=== PATIENT | male | born 1965 | race Caucasian/White ===

== ENCOUNTER 2017-01-13 13:45 | Inpatient (IN) | payer OTHER ==
[~2017-01-13] VITALS: Ht 182.9 cm; Wt 102.5 kg
[2017-01-13] MEDS ORDERED: LISINOPRIL HCTZ1 TAB PO (14:53)
[2017-01-13] MEDS ORDERED: METOPROLOL SUC100 M1 PO (14:53)
[2017-01-13] MEDS ORDERED: AMLODIPINE10 MG PO (14:54)
[2017-01-13] MEDS ORDERED: FLEXERIL10 MG PO (14:55)
[2017-01-13 14:57] VITALS: BP 160/82
--- NOTE | 2017-01-13 15:11 | RADIOLOGY REPORT PS360 ---
CHEST(2 VIEWS-NOT PORTABLE) HISTORY: Cough and congestion R/O PNEUMONIA ORDERING PHYSICIAN: Melquiades Ham MD PATIENT AGE: 51 years COMPARISON: 10/08/2011 FINDINGS: There are low lung volumes with atelectatic changes in the lung bases. There is increased density in the right lower lobe consistent with infiltrate with small effusion. Upper lobes are clear. Unremarkable cardiovascular structures. No acute bony anomalies. IMPRESSION: Right lower lobe infiltrate with effusion with bibasilar atelectasis.
[2017-01-13] MEDS ORDERED: FISH OIL1000 MG PO (15:59)
[2017-01-13] MEDS ORDERED: COQ1050 MG PO (15:59)
[2017-01-13 16:01] VITALS: BP 160/82
[2017-01-13 16:13] LABS: LYMPH # 0.7 K/mm3 (0.7-4.5); LYMPH % 3.9 % (10-50)
[2017-01-13] MEDS ORDERED: HCTZ/LISINOPRIL1 TA3 PO (16:15)
[2017-01-13] MEDS ORDERED: LORADAMED10 MG PO (16:20)
--- NOTE | 2017-01-13 16:20 | PHARMACY CLINIC NOTE ---
Patient Demographics Patient Demographics Admission date: 01/13/17 Date: 01/13/17 Time: 1619 Allergies Coded Allergies: No Known Allergies (01/13/17) HEIGHT- FT: 6 IN: 0.00 K.712 VTE General Information Disclaimer The following section includes nursing documentation that has been pulled in for pharmacy review. VTE prophylaxis [id number] VTE prophylaxis ordered? Yes Type of prophylaxis/treatment: Lovenox at 3033
[2017-01-13] MEDS ORDERED: MELOXICAM15 MG PO (16:21)
[2017-01-13] MEDS ORDERED: MAG-OX 400MG T400 MG PO (16:21)
[2017-01-13 16:28] LABS: HEMOGLOBIN 13.4 g/dL (14.1-18.0)
--- NOTE | 2017-01-13 16:31 | HISTORY AND PHYSICAL REPORT ---
History and Physical ([facility]) Date of admission: 01/13/17 Chief complaint: vomiting, cough and fever History: History of Present Illness: Mr Celis is a 51 year old male with a history of HTN and Hyperlipidemia who presented to the office of [facility] today with fever, cough and vomiting. He states that he has been coughing for about 2weeks and then 01/10/17 felt much worse and started to vomit. His cough has been productive of yellowish sputum and he has had a fever. He has retained very little fluids. He continues to void but urine is dark. He has had no diarrhea. He has right upper chest pain with deep breathing, coughing and vomiting. At time of this exam he does not feel much better. The Zofran has helped the nausea. Past Medical History: Medical History: CAD? No Angina: No MA: No Hypertension? Yes Hyperlipidemia? Yes CHF? No DVT? No PE? No COPD? No Asthma? No Anemia? No GERD? No Gastric ulcers? No GI Bleed? No Hernia? No Thyroid Problems? No CVA? No Seizures? No Diabetes? No Renal Insuffiency? No UTI? No Stones? No BPH? No GB Disease: No Arthritis? No Migraines? No Cataracts? No Glaucoma? No Anxiety? No Depression? No Surgical history: Previous Surgery?Y L KNEE Medications: Reported Medications Cyclobenzaprine Hcl (Flexeril) 5 MG PO BIDP PRN muscle relaxer LISINOPRIL/HYDROCHLOROTHIAZIDE (Lisinopril-Hctz 20-12.5 MG Tab) 2 TAB PO Loratadine (Loradamed) 10 MG PO DAILY Meloxicam (Meloxicam 15MG) 15 MG PO DAILY MAGNESIUM OXIDE (Magnesium Oxide) 400 MG PO METOPROLOL SUCCINATE XL (Metoprolol Succinate) 100 MG PO DAILY Amlodipine Besylate (Amlodipine) 10 MG PO DAILY Ubidecarenone (Coq10) 50 MG PO DAILY OMEGA-3 FATTY ACIDS/FISH OIL (Fish Oil 1,000 MG Capsule) 1,000 MG PO DAILY MISCELLANEOUS (UNKNOWN MEDICATION) 1 DERRICK TP DAILY Discontinued Reported Medications LISINOPRIL/HYDROCHLOROTHIAZIDE (Lisinopril-Hctz 20-25 MG Tab) 1 TAB PO DAILY Allergies: Coded Allergies: No Known Allergies (01/13/17) Family History: Family history: Postive for: CAD, HTN. Social History: Smoking Hx Tobacco: No Smoker: Never Smoker Type: N/A Packs/day: N/A Are you exposed to second hand Yes Alcohol: Alcohol: No Hx of Drug Use: Drug Use? No Review of Systems: Constitutional Positive for: weak. ENT No: ear ache, nasal congestion, sore throat. Cardiovascular No: chest pain, edema, palpitations. Respiratory Positive for: shortness of air, pneumonia, productive cough (sputum). No: hemoptysis. GI Positive for: abdominal pain, nausea, vomitting. No: constipation, diarrhea, hematemeis, hematochezia, melena. (male) No: frequency, hematuria. Neurological Positive for: dizziness, weakness. No: seizure, syncope. Musculoskeletal No: extremity pain, joint pain, myalgias. Physical Exam: Vital signs: 1ST Vital Signs Result Date Time Pulse Ox 92 01/13 1457 B/P 160/82 01/13 1457 O2 Delivery ROOM AIR 01/13 1457 Temp 99.6 01/13 1457 Pulse 106 01/13 1457 Resp 22 01/13 1457 Exam: General appearance: alert, no acute distress, well-developed, well-nourished, appears not to feel well Eyes: anicteric, pupils reactive to light ENT: mucous membranes moist Neck: no carotid bruit, lymphadenopathy (absent), thyroid (normal) Cardiovascular: regular rate & rhythm, tachycardia Respiratory: bilateral crackles > in the right base ABD: non-distended, soft, bowel sounds present, tenderness (RUQ) Extremities: moves all, no peripheral edema, pedal pulses (present), no calf tenderness Lab data: Labs: Laboratory Tests 01/13/17 1530: Sodium 137, Potassium 3.1 L, Chloride 100, Carbon Dioxide 28, BUN 24 H, Creatinine 1.6 H, Estimated Creat Clear 78, Estimated GFR (MDRD) 46, Glucose 116 H, Calcium 9.4, WBC 17.9 H, RBC 4.48 L, Hgb 13.4 L, Hct 40.0 L, MCV 89.4, RDW 13.7, Plt Count 293, MPV 7.3 L, Gran % 87.5 H, Gran # 15.6 H, Lymphocytes % 3.9 L, Monocytes % 7.9, Eosinophils % 0.6, Basophils % 0.2, Lymphocytes # 0.7, Monocytes # 1.4 H, Eosinophils # 0.1, Basophils # 0.0, PUBS MCHC 33.5, MCH 30.0 Microbiology 01/13 1530 BLOOD: Anaerobic Blood Culture - RECD 01/13 1530 BLOOD: Aerobic Blood Culture - RECD 01/13 1530 BLOOD: Anaerobic Blood Culture - RECD 01/13 1530 BLOOD: Aerobic Blood Culture - RECD Laboratory Tests Radiology results: Results: 01/13/17 CXR IMPRESSION: Right lower lobe infiltrate with effusion with bibasilar atelectasis. Diagnosis(es): 1. Right lower lobe pneumonia 2. HTN (hypertension) 3. Hyperlipidemia 4. Hypovolemia dehydration 5. Hypokalemia Plan: ABX, duonebs,IVF, KCL and nausea management (Sho Valdez APRN) Diagnosis(es): 1. Right lower lobe pneumonia Status: Acute 2. Vomiting Status: Acute 3. Hypovolemia dehydration Status: Acute 4. Hypokalemia Status: Acute 5. HTN (hypertension) Status: Chronic 6. Hyperlipidemia Status: Chronic Plan: Patient seen and agree with above note, admitted with CAP standing orders. (Melquiades Ham MD) at 1631 at 1639
[2017-01-13 16:58] LABS: NEUTROPHILS 91 % (42-76)
[2017-01-13 19:44] VITALS: BP 129/84
[2017-01-13 20:04] VITALS: BP 129/84
[2017-01-14] VITALS (8 sets, daily range): BP systolic 151–179; BP diastolic 74–93
[2017-01-14 06:27] LABS: LYMPH # 1.1 K/mm3 (0.7-4.5); LYMPH % 7.7 % (10-50)
[2017-01-14 06:41] LABS: HEMOGLOBIN 11.5 g/dL (14.1-18.0)
--- NOTE | 2017-01-14 08:16 | ACUTE CARE PROGRESS NOTE (QUA) ---
Progress Notes Subjective Date 01/14/17 Time 0812 Note Feeling somewhat better; slept little; no further vomitin; no diarrhea; cough is less. ate a little of breakfast Objective Findings Laboratory Tests 01/14/17 0615: Sodium 137, Potassium 3.7, Chloride 104, Carbon Dioxide 28, BUN 17, Creatinine 1.3, Estimated Creat Clear 97, Estimated GFR (MDRD) 58, Glucose 119 H, Calcium 8.4 L, WBC 14.3 H, RBC 3.75 L, Hgb 11.5 L, Hct 33.5 L, MCV 89.5, RDW 13.8, Plt Count 235, MPV 7.6, Gran % 82.0 H, Gran # 11.7 H, Lymphocytes % 7.7 L, Monocytes % 6.8, Eosinophils % 3.4, Basophils % 0.1, Lymphocytes # 1.1, Monocytes # 1.0, Eosinophils # 0.5 H, Basophils # 0.0, PUBS MCHC 33.9, MCH 30.3 01/13/17 1530: Sodium 137, Potassium 3.1 L, Chloride 100, Carbon Dioxide 28, BUN 24 H, Creatinine 1.6 H, Estimated Creat Clear 78, Estimated GFR (MDRD) 46, Glucose 116 H, Calcium 9.4, WBC 17.9 H, RBC 4.48 L, Hgb 13.4 L, Hct 40.0 L, MCV 89.4, RDW 13.7, Plt Count 293, MPV 7.3 L, Gran % 87.5 H, Gran # 15.6 H, Total Counted 100, Lymphocytes % 3.9 L, Monocytes % 7.9, Eosinophils % 0.6, Basophils % 0.2, Neutrophils 91 H, Lymphocytes (Manual) 3 L, Lymphocytes # 0.7, Monocytes (Manual) 6, Monocytes # 1.4 H, Eosinophils # 0.1, Basophils # 0.0, Platelet Estimate NORMAL, PUBS MCHC 33.5, MCH 30.0, Mycoplasma pneumon IgM NON- REACTIVE Microbiology 01/14 2120 SPUTUM: Sputum Culture - RES 01/14 2120 SPUTUM: Gram Stain - RES 01/14 2120 SPUTUM: Organism ID (Sequencing 2)(ABHI) - ORD 01/13 1530 BLOOD: Anaerobic Blood Culture - RECD 01/13 1530 BLOOD: Aerobic Blood Culture - RECD 09/18 1530 BLOOD: Anaerobic Blood Culture - RECD 01/13 1530 BLOOD: Aerobic Blood Culture - RECD Vital Signs Date Time Temp Pulse Resp B/P Pulse O2 O2 Flow FiO2 Ox Delivery Rate 01/14 0611 2 01/14 0611 91 OXYGEN 2 01/14 0422 98.8 95 18 177/82 92 OXYGEN 2 01/14 0047 99.2 100 18 179/86 93 OXYGEN 2 01/13 2311 2 01/13 2035 2 01/13 203 89 ROOM AIR 01/14 2004 98.8 94 18 129/84 93 OXYGEN 01/13 194 98.8 94 18 129/84 89 2 01/13 1624 2 01/13 1624 2 01/13 1624 87 ROOM AIR 2 01/13 1624 87 ROOM AIR 01/13 1601 106 01/13 1601 99.6 106 22 160/82 01/13 1601 92 ROOM AIR 01/13 1457 99.6 106 22 160/82 92 ROOM AIR Current Medications Enoxaparin Sodium 40 MG DAILY SC Acetaminophen 0 .STK-MED ONE PO (DC) Albuterol/Ipratropium 3 ML Q6H6 INH Potassium Chloride/Dextrose/Sod Cl 1,000 ML .Q8H IV Sodium Chloride 1,000 ML .Q1H1M IV (DC) Acetaminophen 0 .STK-MED ONE PO (DC) Ondansetron HCl 0 .STK-MED ONE .ROUTE (DC) Sodium Chloride 1,000 ML .STK-MED ONE IV (DC) Azithromycin 500 MG Q24H IV Sodium Chloride 250 ML Sodium Chloride 10 ML PRN PRN IV Acetaminophen 650 MG Q4HP PRN PO Albuterol/Ipratropium 3 ML Q1HP PRN INH Ceftriaxone Sodium 1 GM Q24H IV Sodium Chloride 50 ML Guaifenesin/Dextromethorphan 10 ML Q4HP PRN PO Nicotine 21 MG DAILYP PRN TD Ondansetron HCl 8 MG Q8HP PRN IV Sodium Chloride 1,000 ML .Q1H1M IV (DC) 01/13 1500 01/13 2300 01/14 0700 Intake Total Output Total Balance Patient 226 lb Weight Last VS-Temp:98.8 B/P:177/82 Pulse:95 Resp:18 SaO2:91 OXYGEN Last weight lbs:226 oz:7 K.712 Method:Bed Scales Exam General appearance: alert, no acute distress, well-developed, well-nourished Cardiovascular: regular rate & rhythm, murmur Respiratory: bilateral basilar crackles > on the left ABD: non-distended, soft, no tenderness Extremities: moves all, no peripheral edema, no calf tenderness Neuro: alert, oriented, speech clear Assessment/Plan Problem List 1. Right lower lobe pneumonia Status: Acute 2. Vomiting Status: Acute 3. Hypovolemia dehydration Status: Acute 4. Hypokalemia Status: Acute 5. HTN (hypertension) Status: Chronic 6. Hyperlipidemia Status: Chronic Patient condition Improving Plan: continue current care This inpt stay is expected to cross 2 MNs from start of care Yes (Sho Valdez APRN) Assessment/Plan Problem List 1. Right lower lobe pneumonia Status: Acute 2. Vomiting Status: Acute 3. Hypovolemia dehydration Status: Acute 4. Hypokalemia Status: Acute 5. HTN (hypertension) Status: Chronic 6. Hyperlipidemia Status: Chronic Comments: Patient seen and agree with above note, improving, resume some BP meds today. (Melquiades Ham MD) at 0816 at 0868
[2017-01-15] VITALS (9 sets, daily range): BP systolic 152–194; BP diastolic 87–118
--- NOTE | 2017-01-15 08:39 | ACUTE CARE PROGRESS NOTE (QUA) ---
Progress Notes Subjective Date 01/15/17 Time 0837 Note Patient had more cough overnight, doesn't feel as well as yesterday. Objective Findings Vital Signs Date Time Temp Pulse Resp B/P Pulse O2 O2 Flow FiO2 Ox Delivery Rate 01/15 0732 2 01/15 0732 99.4 105 20 152/89 94 OXYGEN 2 01/15 0643 2 01/15 0550 2 01/15 0522 2 01/15 0449 2 01/15 0449 95 OXYGEN 2 01/15 0428 2 01/15 0428 98.7 93 20 174/101 94 OXYGEN 2 01/15 0354 91 ROOM AIR 01/15 0254 2 01/15 0205 2 01/15 0100 2 01/15 0015 2 01/15 0015 98.5 100 16 173/95 95 OXYGEN 2 01/14 2313 2 01/14 2154 2 01/14 2144 2 01/14 1955 2 01/14 195 98.7 104 18 151/93 93 OXYGEN 2 01/14 1910 2 01/14 1910 98.7 104 18 151/93 93 2 01/14 1837 2 01/14 1835 2 01/14 1807 20 01/14 1702 2 01/14 1630 99.8 98 24 159/74 95 OXYGEN 01/14 1525 2 01/14 1326 2 01/14 1144 99.0 95 22 169/91 95 OXYGEN 01/14 1120 2 01/14 0917 2 I&O Past 24 Hrs-ending at 0700 01/15 0700 Intake Total 7052 Output Total Balance 7052 Last VS-Temp:99.4 B/P:152/89 Pulse:105 Resp:20 SaO2:94 OXYGEN Last weight lbs:227 oz:4 K.079 Method:Bed Scales Exam General appearance: alert, awake, no acute distress Cardiovascular: regular rate & rhythm Respiratory: good air movement, crackles (right side) Extremities: no peripheral edema Assessment/Plan Problem List 1. Right lower lobe pneumonia Status: Acute 2. Vomiting Status: Acute 3. Hypovolemia dehydration Status: Acute 4. Hypokalemia Status: Acute 5. HTN (hypertension) Status: Chronic 6. Hyperlipidemia Status: Chronic This inpt stay is expected to cross 2 MNs from start of care Yes Comments: Will add medication for cough, repeat CXR today, continue inpatient care. at 0838
--- NOTE | 2017-01-15 11:45 | RADIOLOGY REPORT PS360 ---
CHEST(2 VIEWS-NOT PORTABLE) HISTORY: pneumonia ORDERING PHYSICIAN: Melquiades Ham MD PATIENT AGE: 51 years COMPARISON: 01/13/2017 FINDINGS: Increasing consolidation is present in the right middle and right lower lobe with increasing right-sided effusion. . Normal heart size. No acute bony anomalies. IMPRESSION: Worsening right-sided pneumonia with increasing size right pleural effusion
--- NOTE | 2017-01-15 18:04 | ACUTE CARE PROGRESS NOTE (QUA) ---
Progress Notes Subjective Date 01/15/17 Time 1802 Note Patient had fever this afternoon, CXR shows a worsening pneumonia, so sputum culture available now. Assessment/Plan Problem List 1. Right lower lobe pneumonia Status: Acute 2. Vomiting Status: Acute 3. Hypovolemia dehydration Status: Acute 4. Hypokalemia Status: Acute 5. HTN (hypertension) Status: Chronic 6. Hyperlipidemia Status: Chronic This inpt stay is expected to cross 2 MNs from start of care Yes Comments: Stop Zithromax and Rocephin and start Levaquin and Invanz tonight. at 1803
[2017-01-16 04:03] VITALS: BP 174/97
[2017-01-16 06:56] LABS: HEMOGLOBIN 11.6 g/dL (14.1-18.0); LYMPH # 1.1 K/mm3 (0.7-4.5); LYMPH % 9.8 % (10-50)
[2017-01-16 07:21] VITALS: BP 159/92
--- NOTE | 2017-01-16 09:06 | ACUTE CARE PROGRESS NOTE (QUA) ---
Progress Notes Subjective Date 01/16/17 Time 0740 Note Pt resting in bed, states he is weak and "still not feeling good." He denies any pain. He denies nausea or vomiting although he has little appetite. He continues with productive cough, denies SOB with O2 per NC in place. Objective Findings Laboratory Tests 01/16/17 0630: Sodium 134 L, Potassium 3.9, Chloride 100, Carbon Dioxide 24, BUN 14, Creatinine 1.2, Estimated Creat Clear 105, Estimated GFR (MDRD) 64, Glucose 117 H, Calcium 8.8, WBC 11.4 H, RBC 3.91 L, Hgb 11.6 L, Hct 35.6 L, MCV 91.1, RDW 14.1, Plt Count 322, MPV 7.8, Gran % 77.5, Gran # 8.8 H, Lymphocytes % 9.8 L, Monocytes % 8.2, Eosinophils % 4.1, Basophils % 0.3, Lymphocytes # 1.1, Monocytes # 0.9, Eosinophils # 0.5 H, Basophils # 0.0, PUBS MCHC 32.7, MCH 29.8 Microbiology 01/16 0000 SPUTUM: Sputum Culture - RES 01/16 0000 SPUTUM: Gram Stain - RES Vital Signs Date Time Temp Pulse Resp B/P Pulse O2 O2 Flow FiO2 Ox Delivery Rate 01/16 0721 2 01/16 0721 99.0 104 20 159/92 94 OXYGEN 2 01/16 0650 2 01/16 0619 2 01/16 0619 92 2 01/16 0537 2 01/16 0403 98.7 94 20 174/97 93 OXYGEN 01/16 0325 2 01/16 0046 2 01/15 2352 98.0 92 20 172/95 92 OXYGEN 01/15 2330 2 01/15 2323 2 01/15 2100 2 01/15 1929 98.5 110 20 153/99 93 2 01/15 1929 98.5 110 20 153/99 93 OXYGEN 01/15 1850 2 01/15 1754 2 01/15 1754 86 ROOM AIR 01/15 1724 2 01/15 1718 100.9 123 24 153/92 92 OXYGEN 2 01/15 1717 2 01/15 1606 101.2 124 24 194/118 94 OXYGEN 2 01/15 1433 2 01/15 1329 2 01/15 1247 2 01/15 1132 2 01/15 1132 99.1 105 22 170/87 94 OXYGEN 2 01/15 1041 2 01/15 0920 2 01/15 0908 2 01/15 0908 99.4 105 20 152/89 94 2 Last VS-Temp:99.0 B/P:159/92 Pulse:104 Resp:20 SaO2:94 OXYGEN Last weight lbs:227 oz:4 K.079 Method:Bed Scales 01/15/17 CXR: 1. Worsening right-sided pneumonia with increasing size right pleural effusion. Exam General appearance: alert, awake, no acute distress Cardiovascular: regular rate & rhythm, normal peripheral pulses Respiratory: diminished throughout with right basilar crackles ABD: non-distended, no rebound, soft, no tenderness, no guarding, no organomegaly, no palpable mass, bowel sounds present Extremities: moves all, no peripheral edema, warm, no calf tenderness Neuro: alert, oriented, speech clear, no focal deficit Reviewed: medications, vital signs, lab results, radiology report, nursing notes Assessment/Plan Problem List 1. Right lower lobe pneumonia Status: Acute 2. Vomiting Status: Acute 3. Hypovolemia dehydration Status: Acute 4. Hypokalemia Status: Acute 5. HTN (hypertension) Status: Chronic 6. Hyperlipidemia Status: Chronic Patient condition Guarded Plan: Continue current care. Further per Dr. Ham. This inpt stay is expected to cross 2 MNs from start of care Yes (HUSSEIN COLLADO APRN) Assessment/Plan Problem List 1. Right lower lobe pneumonia Status: Acute 2. Vomiting Status: Acute 3. Hypovolemia dehydration Status: Acute 4. Hypokalemia Status: Acute 5. HTN (hypertension) Status: Chronic 6. Hyperlipidemia Status: Chronic Patient condition Improving Comments: Saw patient this morning, he actually feels a little better today, continue current treatment. (Melquiades Ham MD) at 0905 at 0836
[2017-01-16 11:00] VITALS: BP 155/91
[2017-01-16 11:29] VITALS: BP 155/91
[2017-01-16 19:53] VITALS: BP 162/95
[2017-01-17] VITALS (7 sets, daily range): BP systolic 166–185; BP diastolic 89–104
--- NOTE | 2017-01-17 09:03 | ACUTE CARE PROGRESS NOTE (QUA) ---
Progress Notes Subjective Date 01/17/17 Time 0725 Note Pt resting quietly in bed, reports he is feeling somewhat better this morning. He denies any pain or discomfort, states he rested well overnight, still feeling weak and tired. He has a little appetite this morning, however, he has not yet eaten breakfast. Objective Findings Vital Signs Date Time Temp Pulse Resp B/P Pulse O2 O2 Flow FiO2 Ox Delivery Rate 01/17 0800 2 01/17 0800 98.6 106 20 185/89 92 OXYGEN 2 01/17 0627 2 01/17 0627 94 OXYGEN 2 01/17 0626 2 01/17 0620 2 01/17 0505 2 01/17 0430 2 01/17 0430 98.5 95 18 166/102 93 OXYGEN 2 01/17 0303 2 01/17 0215 2 01/17 0132 2 01/17 0021 2 01/17 0021 98.1 91 20 174/104 95 OXYGEN 2 01/16 2330 2 01/16 2212 2 01/16 2153 86 ROOM AIR 01/163 2 01/16 1953 2 01/16 195 99.7 116 20 162/95 94 2 01/16 195 99.7 116 20 162/95 94 OXYGEN 2 01/16 1844 2 01/16 1748 2 01/16 1734 2 01/16 1734 92 OXYGEN 2 01/16 1632 2 01/16 1540 2 01/16 1540 98.9 111 22 95 OXYGEN 2 01/16 1500 2 01/16 1347 2 01/16 1300 2 01/16 1129 2 01/16 1129 100.0 95 22 155/91 99 OXYGEN 2 01/16 1107 2 01/16 1100 98.9 111 22 155/91 92 2 01/16 0935 2 Last VS-Temp:98.6 B/P:185/89 Pulse:106 Resp:20 SaO2:92 OXYGEN Last weight lbs:226 oz:8 K.739 Method:Bed Scales Exam General appearance: alert, awake, no acute distress Cardiovascular: regular rate & rhythm, normal peripheral pulses Respiratory: diminished throughout ABD: non-distended, no rebound, soft, no tenderness, no guarding, no organomegaly, no palpable mass, bowel sounds present Extremities: moves all, no peripheral edema, warm, no calf tenderness Neuro: alert, oriented, speech clear, no focal deficit Reviewed: medications, vital signs, lab results, radiology report, nursing notes Assessment/Plan Problem List 1. Right lower lobe pneumonia Status: Acute 2. Vomiting Status: Acute 3. Hypovolemia dehydration Status: Acute 4. Hypokalemia Status: Acute 5. HTN (hypertension) Status: Chronic 6. Hyperlipidemia Status: Chronic Patient condition Improving Plan: Continue current care. Further per Dr. Ham. This inpt stay is expected to cross 2 MNs from start of care Yes at 0902
--- NOTE | 2017-01-17 15:27 | RADIOLOGY REPORT PS360 ---
CHEST(2 VIEWS-NOT PORTABLE) HISTORY: pneumonia ORDERING PHYSICIAN: Melquiades Ham MD PATIENT AGE: 51 years COMPARISON: 01/15/2017 FINDINGS: Normal heart size. There is been no significant change in the moderate-sized right pleural effusion with consolidation of the right lower lobe and right middle lobe consistent with pneumonia with parapneumonic effusion. The left lung remains clear. No acute bony anomalies. IMPRESSION: No change right-sided pneumonia with parapneumonic effusion
[2017-01-18] VITALS (7 sets, daily range): BP systolic 153–175; BP diastolic 88–95
[2017-01-18 07:02] LABS: HEMOGLOBIN 10.9 g/dL (14.1-18.0)
--- NOTE | 2017-01-18 08:09 | ACUTE CARE PROGRESS NOTE (QUA) ---
Progress Notes Subjective Date 01/18/17 Time 0808 Note Rested a little better last night. Still with dry cough. No fever since yesterday afternoon Objective Findings Laboratory Tests 01/18/17 0535: Sodium 134 L, Potassium 4.2, Chloride 101, Carbon Dioxide 26, BUN 18, Creatinine 1.3, Estimated Creat Clear 97, Estimated GFR (MDRD) 58, Glucose 116 H, Calcium 8.2 L, WBC 12.6 H, RBC 3.66 L, Hgb 10.9 L, Hct 33.5 L, MCV 91.6, RDW 14.0, Plt Count 380, MPV 7.4, Gran % 79.4, Gran # 10.0 H, Lymphocytes % 8.0 L, Monocytes % 7.6, Eosinophils % 4.5, Basophils % 0.5, Lymphocytes # 1.0, Monocytes # 1.0, Eosinophils # 0.6 H, Basophils # 0.1, PUBS MCHC 32.5, MCH 29.7 Last VS-Temp:99.7 B/P:166/95 Pulse:95 Resp:20 SaO2:96 OXYGEN Last weight lbs:227 oz:6 K.136 Method:Bed Scales Exam General appearance: alert, no acute distress Cardiovascular: regular rate & rhythm Respiratory: diminshed in right base. No wheezes Assessment/Plan Problem List 1. Right lower lobe pneumonia Status: Acute 2. Vomiting Status: Acute 3. Hypovolemia dehydration Status: Acute 4. Hypokalemia Status: Acute 5. HTN (hypertension) Status: Chronic 6. Hyperlipidemia Status: Chronic Plan: Continue per orders. Encouraged OOB This inpt stay is expected to cross 2 MNs from start of care Yes at 1158
[2017-01-19 00:19] VITALS: BP 148/89
[2017-01-19 04:19] VITALS: BP 157/91
[2017-01-19 07:40] VITALS: BP 122/90
--- NOTE | 2017-01-19 08:26 | ACUTE CARE PROGRESS NOTE (QUA) ---
Progress Notes Subjective Date 01/19/17 Time 0822 Note Slept fairly well. He feels he is coughing less but and it is more productive. C/o hands "tingling" this AM and wonders if it is the antibiotic. No itching or rash. Objective Findings Last VS-Temp:98.6 B/P: 122/90 Pulse:107 Resp:20 SaO2:94 OXYGEN Last weight lbs: 226 oz: 2 K.569 Method: Bed Scales Exam General appearance: sitting up in chair, NAD Eyes: anicteric Cardiovascular: regular rate & rhythm Respiratory: diminshed in right base, no wheezes ABD: soft, no tenderness Extremities: no edema of hands. Skin: no rash Assessment/Plan Problem List 1. Right lower lobe pneumonia Status: Acute 2. Vomiting Status: Acute 3. Hypovolemia dehydration Status: Acute 4. Hypokalemia Status: Acute 5. HTN (hypertension) Status: Chronic 6. Hyperlipidemia Status: Chronic Plan: Conitnue per orders. F/u labs in AM. This inpt stay is expected to cross 2 MNs from start of care Yes at 0846
--- NOTE | 2017-01-19 13:04 | ACUTE CARE PROGRESS NOTE (QUA) ---
Progress Notes Subjective Date 01/19/17 Time 1304 Assessment/Plan Problem List 1. Right lower lobe pneumonia Status: Acute 2. Vomiting Status: Acute 3. Hypovolemia dehydration Status: Acute 4. Hypokalemia Status: Acute 5. HTN (hypertension) Status: Chronic 6. Hyperlipidemia Status: Chronic This inpt stay is expected to cross 2 MNs from start of care Yes Antibiotic Stewardship (2) Current Culture Results Microbiology 01/16 0000 SPUTUM: Sputum Culture - RES 01/16 0000 SPUTUM: Gram Stain - RES 01/14 2120 SPUTUM: Organism ID (Sequencing 2)(ABHI) - CAN Cancelled: Auto-cancelled after 3 days. 01/13 1530 BLOOD: Anaerobic Blood Culture - COMP 01/13 1530 BLOOD: Aerobic Blood Culture - COMP Infxn that will respond? Yes Right drug,dose,and route? Yes More targeted antbx? No at 1304
[2017-01-19 15:34] VITALS: BP 164/94
[2017-01-19 20:50] VITALS: BP 153/89
[2017-01-19 21:00] VITALS: BP 153/89
[2017-01-20 00:25] VITALS: BP 150/88
[2017-01-20 04:19] VITALS: BP 163/90
[2017-01-20 05:19] LABS: HEMOGLOBIN 10.9 g/dL (14.1-18.0); LYMPH % 8.5 % (10-50)
[2017-01-20 05:48] LABS: NEUTROPHILS 80 % (42-76)
[2017-01-20 08:00] VITALS: BP 143/93
--- NOTE | 2017-01-20 08:18 | ACUTE CARE PROGRESS NOTE (QUA) ---
Progress Notes Subjective Date 01/20/17 Time 0813 Note Feels better; coughing is less although continues with productive cough; has slept the past 3 nights; off O2 this AM and not SOB; ambulating in the rool; is sitting in the chair now. voiding QS and bowels are moving; poor appetite. Low grade fever yesterday Objective Findings Laboratory Tests 01/20/17 0445: Sodium 134 L, Potassium 4.0, Chloride 101, Carbon Dioxide 27, BUN 14, Creatinine 1.2, Estimated Creat Clear 103, Estimated GFR (MDRD) 63, Glucose 108 H, Calcium 8.1 L, WBC 11.3 H, RBC 3.69 L, Hgb 10.9 L, Hct 33.7 L, MCV 91.5, RDW 13.9, Plt Count 471 H, MPV 7.2 L, Gran % 85.0 H, Gran # 9.6 H, Total Counted 100, Lymphocytes % 8.5 L, Monocytes % 4.7, Eosinophils % 1.5, Basophils % 0.3, Neutrophils 80 H, Band Neutrophils 10 H, Lymphocytes (Manual) 9 L, Lymphocytes # 1.0, Monocytes (Manual) 1 L, Monocytes # 0.5, Eosinophils # 0.2, Basophils # 0.0, Platelet Estimate SLIGHT INCREASE, Polychromasia 1+, Hypochromasia 2+, Rouleaux 1+, PUBS MCHC 32.4, MCH 29.7 Vital Signs Date Time Temp Pulse Resp B/P Pulse O2 O2 Flow FiO2 Ox Delivery Rate 01/20 0632 2.5 01/20 0620 2.5 01/20 0556 2.5 01/20 0556 93 OXYGEN 2.5 01/20 0510 2.5 01/20 0419 2.5 01/20 0419 98.9 103 18 163/90 93 OXYGEN 2.5 01/20 0304 90 ROOM AIR 01/20 0300 2.5 01/20 0230 2.5 01/20 0100 2.5 01/20 0025 2.5 01/20 0025 99.1 109 20 150/88 93 OXYGEN 2.5 01/19 2300 2.5 01/19 2220 2.5 01/19 2100 2.5 01/19 2100 99.2 104 20 153/89 94 2.5 01/19 2050 2.5 09/24 2050 99.2 104 20 153/89 94 OXYGEN 2.5 01/19 1905 2.5 01/19 1834 2.5 01/19 1612 2.5 01/19 1534 98.8 101 20 164/94 93 OXYGEN 01/19 1325 2.5 01/19 1150 2.5 01/19 0905 2.5 01/19 0905 98.6 107 20 122/90 94 2.5 Current Medications Ondansetron HCl 0 .STK-MED ONE .ROUTE (DC) Hydrocodone Bit/Homatropine MBr 0 .STK-MED ONE PO (DC) Diphenhydramine HCl 0 .STK-MED ONE PO (DC) Diphenhydramine HCl 50 MG ONCE ONE PO (DC) Clindamycin Phosphate 900 MG Q8H IV Sodium Chloride 100 ML Ertapenem 1 GM 1800 IV Sodium Chloride 50 ML Hydrocodone Bit/Homatropine MBr 5 MG Q4HP PRN PO Sodium Chloride 2 ML PRN PRN IV Potassium Chloride/Dextrose/Sod Cl 1,000 ML .[id number] IV Amlodipine Besylate 5 MG DAILY PO Enoxaparin Sodium 40 MG DAILY SC Metoprolol Tartrate 25 MG BID PO Albuterol/Ipratropium 3 ML Q6H6 INH Sodium Chloride 10 ML PRN PRN IV Acetaminophen 650 MG Q4HP PRN PO Albuterol/Ipratropium 3 ML Q1HP PRN INH Guaifenesin/Dextromethorphan 10 ML Q4HP PRN PO Nicotine 21 MG DAILYP PRN TD Ondansetron HCl 8 MG Q8HP PRN IV 01/19 1500 01/19 2300 01/20 0700 Intake Total 576 311 2516 Output Total Balance 391 439 3873 Intake, IV 1500 Intake, Oral 480 240 Patient 228 lb Weight Last VS-Temp:98.9 B/P:163/90 Pulse:103 Resp:18 SaO2:93 OXYGEN Last weight lbs:227 oz:9 K.221 Method:Bed Scales Exam General appearance: alert, active, no acute distress Cardiovascular: regular rate & rhythm Respiratory: decreased BS on the right with few left basilar crackles ABD: soft, no tenderness, no guarding, bowel sounds present Extremities: no peripheral edema Neuro: alert, oriented Assessment/Plan Problem List 1. Right lower lobe pneumonia Status: Acute 2. Vomiting Status: Acute 3. Hypovolemia dehydration Status: Acute 4. Hypokalemia Status: Acute 5. HTN (hypertension) Status: Chronic 6. Hyperlipidemia Status: Chronic Patient condition Improving Plan: continue current care This inpt stay is expected to cross 2 MNs from start of care Yes (Sho Valdez APRN) Assessment/Plan Problem List 1. Right lower lobe pneumonia Status: Acute 2. Vomiting Status: Acute 3. Hypovolemia dehydration Status: Acute 4. Hypokalemia Status: Acute 5. HTN (hypertension) Status: Chronic 6. Hyperlipidemia Status: Chronic Comments: Patient seen and agree with above note. (Melquiades Ham MD) at 0818 at 0850
[2017-01-20 11:56] VITALS: BP 162/88
[2017-01-20 16:00] VITALS: BP 159/85
--- NOTE | 2017-01-20 19:16 | RADIOLOGY REPORT PS360 ---
CHEST(2 VIEWS-NOT PORTABLE) HISTORY: pneumonia Patient Age: 52 years: Male Ordering Physician: Melquiades Ham MD TECHNIQUE: PA and lateral COMPARISON : 01/17/2017 CXR FINDINGS there is been scant improvement since 01/17/2017. Very slight improved aeration towards the right lung base on both views.. Fairly dense consolidation persists at the right lower lobe inferiorly/posteriorly as seen on lateral view. Generous parapneumonic pleural effusion along the posterior right chest again observed with scant if any improvement of this feature . Diffuse pronounced density throughout the region of RML on lateral view likely related combination effusion & persistent consolidation shown only slight improvement The left lung remains clear no significant change. Heart normal size mediastinal structures unremarkable. IMPRESSION. -------- Slight improvement right chest since 01/17/2017 Subtle improvement ofinfiltrate and effusion since recent prior CXR studies Prominent findings persist at right chest
[2017-01-20 20:21] VITALS: BP 172/81
[2017-01-21] VITALS (8 sets, daily range): BP systolic 160–178; BP diastolic 84–99
--- NOTE | 2017-01-21 08:28 | ACUTE CARE PROGRESS NOTE (QUA) ---
Progress Notes Subjective Date 01/21/17 Time 0825 Note Patient feels a little better this morning. Objective Findings Vital Signs Date Time Temp Pulse Resp B/P Pulse O2 O2 Flow FiO2 Ox Delivery Rate 01/21 0805 2.5 01/21 0805 98.9 109 22 161/84 92 OXYGEN 2.5 01/21 0647 2.5 01/21 0600 2.5 01/21 0556 2.5 01/21 0556 91 ROOM AIR 01/21 0524 2.5 01/21 0412 2.5 01/21 0412 98.2 91 22 174/85 93 OXYGEN 2.5 01/21 0312 2.5 01/21 0154 2.5 01/21 0153 2.5 01/21 0018 2.5 01/21 0018 99.8 102 20 170/94 93 OXYGEN 01/20 2342 2.5 01/20 2328 96 OXYGEN 2.5 01/20 2219 2.5 01/20 2100 2.5 01/20 2021 99.4 113 22 172/81 90 2.5 01/20 2021 99.4 113 22 172/81 90 ROOM AIR 01/20 1900 2.5 01/20 1853 2.5 01/20 1853 89 ROOM AIR 01/20 1700 2.5 01/20 1600 99.3 104 18 159/85 93 OXYGEN 01/20 1500 2.5 01/20 1300 2.5 01/20 1156 97.8 98 20 162/88 95 OXYGEN 01/20 1100 2.5 01/20 0925 2.5 I&O Past 24 Hrs-ending at 0700 01/21 0700 Intake Total 1826 Output Total Balance 1826 Last VS-Temp:98.9 B/P:161/84 Pulse:109 Resp:22 SaO2:92 OXYGEN Last weight lbs:227 oz:9 K.221 Method:Bed Scales Exam General appearance: alert, awake, no acute distress Cardiovascular: regular rate & rhythm Respiratory: diminished breath sounds (on right) Extremities: no peripheral edema Assessment/Plan Problem List 1. Right lower lobe pneumonia Status: Acute 2. Vomiting Status: Resolved 3. Hypovolemia dehydration Status: Resolved 4. Hypokalemia Status: Resolved 5. HTN (hypertension) Status: Chronic 6. Hyperlipidemia Status: Chronic This inpt stay is expected to cross 2 MNs from start of care Yes Comments: Patient improving, wean O2 off, saline lock IVF, change to oral Clindamycin. at 0818
[2017-01-22 00:13] VITALS: BP 158/87
[2017-01-22 04:25] VITALS: BP 166/93
[2017-01-22 07:44] LABS: HEMOGLOBIN 10.4 g/dL (14.1-18.0)
[2017-01-22 07:45] LABS: LYMPH # 1.1 K/mm3 (0.7-4.5); LYMPH % 6.8 % (10-50)
--- NOTE | 2017-01-22 08:00 | ACUTE CARE PROGRESS NOTE (QUA) ---
Progress Notes Subjective Date 01/22/17 Time 0753 Note patient wanting to go home; states he is better; still with productive cough of yellow sputum; walked aroung hallway x2 maintaining satisfactory O2 sats; eating OK; bowels are moving and voiding QS low grad fever with elevation of WBC's Objective Findings Laboratory Tests 01/22/17 0609: Sodium 137, Potassium 3.7, Chloride 102, Carbon Dioxide 27, BUN 12, Creatinine 1.2, Estimated Creat Clear 103, Estimated GFR (MDRD) 63, Glucose 97, Calcium 8.5 , WBC 15.6 H, RBC 3.57 L, Hgb 10.4 L, Hct 31.5 L, MCV 88.1, RDW 14.3, Plt Count 504 H, Gran % 88.6 H, Gran # 13.8 H, Lymphocytes % 6.8 L, Monocytes % 4.6, Lymphocytes # 1.1, Monocytes # 0.7, PUBS MCHC 33.0, MCH 29.1 Vital Signs Date Time Temp Pulse Resp B/P Pulse O2 O2 Flow FiO2 Ox Delivery Rate 01/22 0601 2.5 01/22 0601 91 ROOM AIR 01/22 0425 99.0 97 18 166/93 90 ROOM AIR 01/22 0334 92 ROOM AIR 01/22 0013 99.6 93 18 158/87 91 ROOM AIR 01/21 2340 2.5 01/21 2024 99.0 103 20 178/99 91 ROOM AIR 01/21 1933 99.1 107 22 168/91 91 01/21 1556 99.1 107 22 168/91 91 ROOM AIR 01/21 1329 2.5 01/21 1142 89 ROOM AIR 01/21 1130 2.5 01/21 1130 99.2 90 20 160/95 93 OXYGEN 2.5 01/21 0949 2.5 01/21 0900 98.9 109 22 161/84 92 01/21 0805 2.5 01/21 0805 98.9 109 22 161/84 92 OXYGEN 2.5 Current Medications Hydrocodone Bit/Homatropine MBr 0 .STK-MED ONE PO (DC) Clindamycin HCl 600 MG 0800,1600,0000 PO (CKDr) Amlodipine Besylate 10 MG DAILY PO (DC) Amlodipine Besylate 10 MG DAILY PO Clindamycin HCl 600 MG TID PO (DC) Metoprolol Tartrate 50 MG BID PO Sodium Chloride 10 ML PRN PRN IV Diphenhydramine HCl 25 MG Q4HP PRN PO Clindamycin Phosphate 900 MG Q8H IV (DC) Sodium Chloride 100 ML Ertapenem 1 GM 1800 IV Sodium Chloride 50 ML Hydrocodone Bit/Homatropine MBr 5 MG Q4HP PRN PO Sodium Chloride 2 ML PRN PRN IV Potassium Chloride/Dextrose/Sod Cl 1,000 ML .[id number] IV (DC) Amlodipine Besylate 5 MG DAILY PO (DC) Enoxaparin Sodium 40 MG DAILY SC Metoprolol Tartrate 25 MG BID PO (DC) Albuterol/Ipratropium 3 ML Q6H6 INH Sodium Chloride 10 ML PRN PRN IV Acetaminophen 650 MG Q4HP PRN PO Albuterol/Ipratropium 3 ML Q1HP PRN INH Guaifenesin/Dextromethorphan 10 ML Q4HP PRN PO Nicotine 21 MG DAILYP PRN TD Ondansetron HCl 8 MG Q8HP PRN IV 01/21 1500 01/21 2300 01/22 0700 Intake Total 360 120 Output Total Balance 360 120 Intake, Oral 360 120 Output, Stool Patient 226 lb Weight Last VS-Temp:99.0 B/P:166/93 Pulse:97 Resp:18 SaO2:91 ROOM AIR Last weight lbs:226 oz:0 K.512 Method:Bed Scales > SPUTUM CULTURE Final 01/17/17-623 Organism 1 STAPHYLOCOCCUS AUREUS 1. STAPHYLOCOCCUS AUREUS RX AB M.I.C ROUTE COST I ------ -- --------- ----- ------ TRIMETH/SULFAMETH (BACTRIM) S <=10 CLINDAMYCIN S <=0.25 ERYTHROMYCIN S <=0.25 GENTAMICIN S <=0.5 LEVOFLOXACIN R 0.25 NITROFURANTOIN (MACRODANTIN) S <=16 OXACILLIN S 0.5 BENZYLPENICILLIN S 0.12 RIFAMPIN S <=0.5 TETRACYCLINE S <=1 VANCOMYCIN S 1 CXR 01/20/17 IMPRESSION. -------- Slight improvement right chest since 01/17/2017 Subtle improvement ofinfiltrate and effusion since recent prior CXR studies Prominent findings persist at right chest Exam General appearance: normal appearance, alert, active, no acute distress, up in his room Cardiovascular: regular rate & rhythm Respiratory: diminished BS on the right with slight improvement ABD: non-distended, soft Extremities: full range of motion, no peripheral edema, no calf tenderness Neuro: alert, oriented Assessment/Plan Problem List 1. Right lower lobe pneumonia Status: Acute 2. Vomiting Status: Resolved 3. Hypovolemia dehydration Status: Resolved 4. Hypokalemia Status: Resolved 5. HTN (hypertension) Status: Chronic 6. Hyperlipidemia Status: Chronic 7. Staphylococcus aureus pneumonia Patient condition improved Plan: continue current care, discussed going home This inpt stay is expected to cross 2 MNs from start of care Yes (Sho Valdez APRN) Assessment/Plan Problem List 1. Staphylococcus aureus pneumonia Status: Acute 2. Right lower lobe pneumonia Status: Acute 3. Anemia Status: Acute 4. Vomiting Status: Resolved 5. Hypovolemia dehydration Status: Resolved 6. Hypokalemia Status: Resolved 7. HTN (hypertension) Status: Chronic 8. Hyperlipidemia Status: Chronic This inpt stay is expected to cross 2 MNs from start of care Yes Comments: Patient seen and agree with above note. He wants to be discharged, plan office f/u in 2 days. (Melquiades Ham MD) at 0800 at 0819
[2017-01-22 08:02] VITALS: BP 178/93
[2017-01-22 08:13] VITALS: BP 178/93
[2017-01-22] MEDS ORDERED: CLINDAMYCIN HC300 MG PO (08:22)
[2017-01-22] MEDS ORDERED: PROMETHAZINE D240 ML PO (08:23)
[2017-01-22 10:02] VITALS: BP 178/93
[2017-01-22 11:29] LABS: NEUTROPHILS 82 % (42-76)
--- NOTE | 2017-01-24 08:05 | DISCHARGE SUMMARY STANDARD ---
Discharge Summary ([facility]) Date of admission: 01/13/17 Date of discharge: 01/22/17 Problem List: 1. Staphylococcus aureus pneumonia 2. Right lower lobe pneumonia 3. Anemia 4. Vomiting 5. Hypovolemia dehydration 6. Hypokalemia 7. HTN (hypertension) 8. Hyperlipidemia History of present illness: History of Present Illness: Mr Celis is a 51 year old male with a history of HTN and Hyperlipidemia who presented to the office of [facility] today with fever, cough and vomiting. He stated that he had been coughing for about 2weeks and on 01/10/17 felt much worse and started to vomit. His cough was been productive of yellowish sputum and he had a fever. He retained very little fluids. He continued to void but urine was dark. He had no diarrhea. He had right upper chest pain with deep breathing, coughing and vomiting. Exam on admission: 1ST Vital Signs Result Date Time Pulse Ox 92 01/13 1457 B/P 160/82 01/13 1457 O2 Delivery ROOM AIR 01/13 1457 Temp 99.6 01/13 1457 Pulse 106 01/13 1457 Resp 22 01/13 1457 Exam: General appearance: alert, no acute distress, well-developed, well-nourished, appears not to feel well Eyes: anicteric, pupils reactive to light ENT: mucous membranes moist Neck: no carotid bruit, lymphadenopathy (absent), thyroid (normal) Cardiovascular: regular rate & rhythm, tachycardia Respiratory: bilateral crackles > in the right base ABD: non-distended, soft, bowel sounds present, tenderness (RUQ) Extremities: moves all, no peripheral edema, pedal pulses (present), no calf tenderness Hospital Course: On admission patient was placed on pneumonia protocol with IVF, ABX, Duonebs and antiemetics. He made slow improvement and CXR worsened. ABX were changed to Invantz and Levaquin. Clindamycin was added. Sputum culture revealed MRSA. Patient's cough lessened and remained productive. He did eventually began to sleep, eat and was able to be weaned from oxygen. 01/22/17 he reported that he had walked the hallways without difficulty and was ready to go home. Lung sounds and CXR were improved. He was discharged on this date. Laboratory data this visit: 01/13/17 1530: Sodium 137, Potassium 3.1 L, Chloride 100, Carbon Dioxide 28, BUN 24 H, Creatinine 1.6 H, Estimated Creat Clear 78, Estimated GFR (MDRD) 46, Glucose 116 H, Calcium 9.4, WBC 17.9 H, RBC 4.48 L, Hgb 13.4 L, Hct 40.0 L, MCV 89.4, RDW 13.7, Plt Count 293, MPV 7.3 L, Gran % 87.5 H, Gran # 15.6 H, Lymphocytes % 3.9 L, Monocytes % 7.9, Eosinophils % 0.6, Basophils % 0.2, Lymphocytes # 0.7, Monocytes # 1.4 H, Eosinophils # 0.1, Basophils # 0.0, PUBS MCHC 33.5, MCH 30.009/ 01/14/17 0615: Sodium 137, Potassium 3.7, Chloride 104, Carbon Dioxide 28, BUN 17, Creatinine 1.3, Estimated Creat Clear 97, Estimated GFR (MDRD) 58, Glucose 119 H, Calcium 8.4 L, WBC 14.3 H, RBC 3.75 L, Hgb 11.5 L, Hct 33.5 L, MCV 89.5, RDW 13.8, Plt Count 235, MPV 7.6, Gran % 82.0 H, Gran # 11.7 H, Lymphocytes % 7.7 L, Monocytes % 6.8, Eosinophils % 3.4, Basophils % 0.1, Lymphocytes # 1.1, Monocytes # 1.0, Eosinophils # 0.5 H, Basophils # 0.0, PUBS MCHC 33.9, MCH 30.3 > SPUTUM CULTURE Final 01/17/17-623 Organism 1 STAPHYLOCOCCUS AUREUS 1. STAPHYLOCOCCUS AUREUS RX AB M.I.C ROUTE COST I ------ -- --------- ----- ------ TRIMETH/SULFAMETH (BACTRIM) S <=10 CLINDAMYCIN S <=0.25 ERYTHROMYCIN S <=0.25 GENTAMICIN S <=0.5 LEVOFLOXACIN R 0.25 NITROFURANTOIN (MACRODANTIN) S <=16 OXACILLIN S 0.5 BENZYLPENICILLIN S 0.12 RIFAMPIN S <=0.5 TETRACYCLINE S <=1 VANCOMYCIN S 1 01/16/17 0630: Sodium 134 L, Potassium 3.9, Chloride 100, Carbon Dioxide 24, BUN 14, Creatinine 1.2, Estimated Creat Clear 105, Estimated GFR (MDRD) 64, Glucose 117 H, Calcium 8.8, WBC 11.4 H, RBC 3.91 L, Hgb 11.6 L, Hct 35.6 L, MCV 91.1, RDW 14.1, Plt Count 322, MPV 7.8, Gran % 77.5, Gran # 8.8 H, Lymphocytes % 9.8 L, Monocytes % 8.2, Eosinophils % 4.1, Basophils % 0.3, Lymphocytes # 1.1, Monocytes # 0.9, Eosinophils # 0.5 H, Basophils # 0.0, PUBS MCHC 32.7, MCH 29.8 01/18/17 0535: Sodium 134 L, Potassium 4.2, Chloride 101, Carbon Dioxide 26, BUN 18, Creatinine 1.3, Estimated Creat Clear 97, Estimated GFR (MDRD) 58, Glucose 116 H, Calcium 8.2 L, WBC 12.6 H, RBC 3.66 L, Hgb 10.9 L, Hct 33.5 L, MCV 91.6, RDW 14.0, Plt Count 380, MPV 7.4, Gran % 79.4, Gran # 10.0 H, Lymphocytes % 8.0 L, Monocytes % 7.6, Eosinophils % 4.5, Basophils % 0.5, Lymphocytes # 1.0, Monocytes # 1.0, Eosinophils # 0.6 H, Basophils # 0.1, PUBS MCHC 32.5, MCH 29.7 01/20/17 0445: Sodium 134 L, Potassium 4.0, Chloride 101, Carbon Dioxide 27, BUN 14, Creatinine 1.2, Estimated Creat Clear 103, Estimated GFR (MDRD) 63, Glucose 108 H, Calcium 8.1 L, WBC 11.3 H, RBC 3.69 L, Hgb 10.9 L, Hct 33.7 L, MCV 91.5, RDW 13.9, Plt Count 471 H, MPV 7.2 L, Gran % 85.0 H, Gran # 9.6 H, Total Counted 100, Lymphocytes % 8.5 L, Monocytes % 4.7, Eosinophils % 1.5, Basophils % 0.3, Neutrophils 80 H, Band Neutrophils 10 H, Lymphocytes (Manual) 9 L, Lymphocytes # 1.0, Monocytes (Manual) 1 L, Monocytes # 0.5, Eosinophils # 0.2, Basophils # 0.0, Platelet Estimate SLIGHT INCREASE, Polychromasia 1+, Hypochromasia 2+, Rouleaux 1+, PUBS MCHC 32.4, MCH 29.7 01/22/17 0609: Sodium 137, Potassium 3.7, Chloride 102, Carbon Dioxide 27, BUN 12, Creatinine 1.2, Estimated Creat Clear 103, Estimated GFR (MDRD) 63, Glucose 97, Calcium 8.5 , WBC 15.6 H, RBC 3.57 L, Hgb 10.4 L, Hct 31.5 L, MCV 88.1, RDW 14.3, Plt Count 504 H, Gran % 88.6 H, Gran # 13.8 H, Lymphocytes % 6.8 L, Monocytes % 4.6, Lymphocytes # 1.1, Monocytes # 0.7, PUBS MCHC 33.0, MCH 29.1 Vital Signs Imagin01/13/17 CXR IMPRESSION: Right lower lobe infiltrate with effusion with bibasilar atelectasis. 01/15/17 repeat CXR IMPRESSION: Worsening right-sided pneumonia with increasing size right pleural effusion 01/17/17 repeat CXR IMPRESSION: No change right-sided pneumonia with parapneumonic effusion 01/20/17 repeat CXR IMPRESSION. -------- Slight improvement right chest since 01/17/2017 Subtle improvement ofinfiltrate and effusion since recent prior CXR studies Prominent findings persist at right chest Discharge medications: Continue taking these medications: METOPROLOL SUCCINATE XL (Metoprolol Succinate) 100 MG TAB.ER.24H 100 MILLIGRAM ORAL DAILY Amlodipine Besylate (Amlodipine) 10 MG TABLET 10 MILLIGRAM ORAL DAILY Cyclobenzaprine Hcl (Flexeril) 10 MG TABLET 5 MILLIGRAM ORAL TWICE A DAY NEEDED as needed for muscle relaxer Ubidecarenone (Coq10) 50 MG TAB.CHEW 50 MILLIGRAM ORAL DAILY OMEGA-3 FATTY ACIDS/FISH OIL (Fish Oil 1,000 MG Capsule) 340 MG-1,000 MG CAPSULE 1,000 MILLIGRAM ORAL DAILY LISINOPRIL/HYDROCHLOROTHIAZIDE (Lisinopril-Hctz 20-12.5 MG Tab) 1 EACH TABLET 2 TABLET ORAL DAILY Loratadine (Loradamed) 10 MG TABLET 10 MILLIGRAM ORAL DAILY Start taking the following new medications: Clindamycin Hcl (Clindamycin 300MG) 300 MG CAPSULE 600 MILLIGRAM ORAL THREE TIMES A DAY Qty = 42 No Refills PROMETHAZINE/DEXTROMETHORPHAN (Promethazine-Dm Syrup) 240 ML SYRUP 5 MILLILITER ORAL EVERY 6 HOURS NEEDED as needed for COUGH Qty = 240 No Refills Disposition: Patient was discharged to home in stable and satisfactory condition. Follow up: [address] Melquiades Ham Activity: Cont Current activity Diet: Continue same diet Discharge to: HOME Agency needed? N Meds as per reconciliation sheet at 0804
--- OUTSIDE RECORDS SUMMARY | 2017-02-05 03:48 | External Medical Summary Rpt ---
Author Author , NOEMY SALGUERO Address Unknown Phone [email or web address] Purpose Continuity of Care Document - 01-13-2017 through 2016 Results Labs Lab Lab Date Result Refere Interp Status Commen Order Detail nces retati t Range on Differential panel, method unspecified - (01-22-2017 06:09) Hypochr 1+ complet omia 017 ed [Presen 06:09 ce] in Blood LYMPH 6 % 10% - Low complet 017 50% ed 06:09 Platele MOD complet ts 017 INCREAS ed [Presen 06:09 E ce] in Blood by Light microsc opy Rouleau 1+ complet x 017 ed [Presen 06:09 ce] in Blood by Light microsc opy Differential panel, method unspecified - (01-20-2017 04:45) Hypochr 2+ complet omia 017 ed [Presen 04:45 ce] in Blood LYMPH 9 % 10% - Low complet 017 50% ed 04:45 Platele SLIGHT complet ts 017 INCREAS ed [Presen 04:45 E ce] in Blood by Light microsc opy Polychr 1+ complet omasia 017 ed [Presen 04:45 ce] in Blood by Light microsc opy Rouleau 1+ complet x 017 ed [Presen 04:45 ce] in Blood by Light microsc opy Mycoplasma pneumoniae IgM Ab [Presence] in Serum by Immunoassay (01-13-2017 15:30) Mycopla NON-CARLO NONREAC complet sma 017 CTIVE TIVE ed pneumon 15:30 iae IgM Ab [Presen ce] in Serum by Immunoa ssay Differential panel, method unspecified - (01-13-2017 15:30) LYMPH 3 % 10% - Low complet 017 50% ed 15:30 Platele NORMAL complet ts 017 ed [Presen 15:30 ce] in Blood by Light microsc opy
--- OUTSIDE RECORDS SUMMARY | 2017-02-05 03:48 | External Medical Summary Rpt ---
Author Author [employer] Organization [employer] Address Unknown Phone Unavailable Purpose Continuity of Care Document - through 2016
--- OUTSIDE RECORDS SUMMARY | 2017-02-05 03:48 | External Medical Summary Rpt ---
Demographics Preferred Language Tamazight Marital Status Unknown Zoroastrianism Affiliation Unknown Race Unknown Ethnic Group Unknown Author Author HERON Address Unknown Phone Immunization No patient found.
--- OUTSIDE RECORDS SUMMARY | 2017-02-05 03:48 | External Medical Summary Rpt ---
Author Author , NOEMY SALGUERO Address Unknown Phone [email or web address] Purpose Continuity of Care Document - 01-13-2017 [...]
--- OUTSIDE RECORDS SUMMARY | 2017-02-05 03:48 | External Medical Summary Rpt ---
Demographics Preferred Language Thai Marital Status Unknown Sikhism Affiliation Unknown Race Unknown Ethnic Group Unknown Author Author HERON Address Unknown Phone Immunization No patient found.
--- OUTSIDE RECORDS SUMMARY | 2017-02-05 03:49 | External Medical Summary Rpt ---
Author Author [employer], [employer] Organization [employer] Address Unknown Phone Unavailable Results CBC W Auto Differential panel in Blood Observa Value Referen Units Interpr Notes Date tion ce etation Range Granulocy 1.3 - 8.0 K/mm3 High No Sep 27 land[place] informati 2017 6:09 [#/volume on in AM ] in source Blood by data Automated count Granulocy 37.0 - % High No Sep 27 landon/100 80.0 informati 2017 6:09 leukocyte on in AM s in source Blood by data Automated count Hematocri 42.0 - % Low No Sep 27 t [Volume 52.0 informati 2017 6:09 on in AM Fraction] source of Blood data Hemoglobi 14.1 - g/dL Low No Sep 27 n 18.0 informati 2017 6:09 [Mass/vol on in AM ume] in source Blood data Lymphocyt 0.7 - 4.5 K/mm3 Normal No Sep 27 es informati 2017 6:09 [#/volume on in AM ] in source Unspecifi data ed specimen by Automated count Lymphocyt 10 - 50 % Low No Sep 27 es informati 2017 6:09 [#/volume on in AM ] in source Unspecifi data ed specimen by Automated count Erythrocy 27 - 31.2 pg Normal No Sep 27 te mean informati 2017 6:09 corpuscul on in AM ar source hemoglobi data n [Entitic mass] Erythrocy 31.8 - g/dl Normal No Sep 27 te mean 35.4 informati 2017 6:09 corpuscul on in AM ar source hemoglobi data n concentra tion [Mass/vol ume] by Automated count Erythrocy 82.2 - fL Normal No Sep 27 te mean 97.8 informati 2017 6:09 corpuscul on in AM ar volume source [Entitic data volume] by Automated count Monocytes 0.1 - 1.0 K/mm3 Normal No Sep 27 informati 2017 6:09 [#/volume on in AM ] in source Blood by data Automated count Monocytes 1.7 - 9.3 % Normal No Sep 27 /100 informati 2017 6:09 leukocyte on in AM s in source Blood by data Automated count Platelets 142 - 424 K/mm3 High No Sep 27 informati 2017 6:09 [#/volume on in AM ] in source Blood data Erythrocy 4.6 - 6.2 M/mm3 Low No Sep 27 landon informati 2017 6:09 [#/volume on in AM ] in source Amniotic data fluid Erythrocy 11.5 - % Normal No Sep 27 te 17.5 informati 2017 6:09 distribut on in AM ion width source [Entitic data volume] by Automated count Leukocyte 4.8 - K/mm3 High No Sep 27 s 10.8 informati 2017 6:09 [#/volume on in AM ] in source Blood data Differential panel, method unspecified - Observa Value Referen Units Interpr Notes Date tion ce etation Range Neutrophi 0 - 8 % Normal No Sep 27 ls.band informati 2017 6:09 form/100 on in AM leukocyte source s in data Blood by Automated count Hypochr 1+ No No No No Sep 27 omia informa informa informa informa 2017 [Presen tion in tion in tion in tion in 6:09 AM ce] in source source source source Blood data data data data LYMPH 6 10 - 50 % Low No Sep 27 informa 2017 tion in 6:09 AM source data Monocytes 2 - 9 % Normal No Sep 27 /100 informati 2017 6:09 leukocyte on in AM s in source Blood by data Automated count Platele MOD No No No No Sep 27 ts INCREAS informa informa informa informa 2017 [Presen E tion in tion in tion in tion in 6:09 AM ce] in source source source source Blood data data data data by Light microsc opy Neutrophi 42 - 76 % High No Sep 27 ls informati 2017 6:09 [#/volume on in AM ] in source Blood by data Automated count Rouleau 1+ No No No No Sep 27 x informa informa informa informa 2016 [Presen tion in tion in tion in tion in 6:09 AM ce] in source source source source Blood data data data data by Light microsc opy Cells No #CELLS No No Sep 27 Counted informati informati informati 2017 6:09 Total [#] on in on in on in AM in Blood source source source data data data Basic metabolic panel in Blood Observa Value Referen Units Interpr Notes Date tion ce etation Range Urea 7 - 18 mg/dL Normal No Sep 27 nitrogen informati 2017 6:09 [Mass/vol on in AM ume] in source Serum or data Plasma Calcium 8.5 - mg/dL Normal No Sep 27 [Mass/vol 10.1 informati 2017 6:09 ume] in on in AM Serum or source Plasma data Chloride 98 - 107 mmoL/L Normal No Sep 27 [Moles/vo informati 2017 6:09 lume] in on in AM Serum or source Plasma data Carbon 21.0 - mmoL/L Normal No Sep 27 dioxide, 32.0 informati 2017 6:09 total on in AM [Moles/vo source lume] in data Serum or Plasma Creatinin 0.70 - mg/dL Normal No Sep 27 e 1.30 informati 2017 6:09 [Mass/vol on in AM ume] in source Serum or data Plasma Creatinin 50 - 200 ML/MIN Normal No Sep 27 e renal informati 2017 6:09 clearance on in AM source predicted data by Cockcroft -Gault formula Estimated >60 ML/MIN No REFERENCE Sep 27 informati RANGE: 2017 6:09 glomerula on in >60 AM r source ML/MIN/1. filtratio data 73 SQUARE n rate METERSIf (GF this patient is -A merican, then multiply theresult by 1.210. Glucose 74 - 106 mg/dL Normal No Sep 27 [Mass/vol informati 2017 6:09 ume] in on in AM Serum or source Plasma data Potassium 3.5 - 5.1 mmoL/L Normal No Sep 27 informati 2017 6:09 [Moles/vo on in AM lume] in source Serum or data Plasma Sodium 136 - 145 mmoL/L Normal No Sep 27 [Moles/vo informati 2017 6:09 lume] in on in AM Serum or source Plasma data CBC W Auto Differential panel in Blood Observa Value Referen Units Interpr Notes Date tion ce etation Range Basophils 0 - 0.2 K/MM3 Normal No Sep 25 informati 2017 4:45 [#/volume on in AM ] in source Blood by data Automated count Basophils 0.1 - 2.0 % Normal No Sep 25 /100 informati 2017 4:45 leukocyte on in AM s in source Blood by data Automated count Eosinophi 0.0 - 0.4 K/mm3 Normal No Sep 25 ls informati 2016 4:45 [#/volume on in AM ] in source Blood by data Automated count Eosinophi 0.1 - % Normal No Sep 25 ls/100 12.0 informati 2016 4:45 leukocyte on in AM s in source Blood by data Automated count Granulocy 1.3 - 8.0 K/mm3 High No Sep 25 landon informati 2016 4:45 [#/volume on in AM ] in source Blood by data Automated count Granulocy 37.0 - % High No Sep 25 landon/100 80.0 informati 2016 4:45 leukocyte on in AM s in source Blood by data Automated count Hematocri 42.0 - % Low No Sep 25 t [Volume 52.0 informati 2016 4:45 on in AM Fraction] source of Blood data Hemoglobi 14.1 - g/dL Low No Sep 25 n 18.0 informati 2016 4:45 [Mass/vol on in AM ume] in source Blood data Lymphocyt 0.7 - 4.5 K/mm3 Normal No Sep 25 es informati 2016 4:45 [#/volume on in AM ] in source Unspecifi data ed specimen by Automated count Lymphocyt 10 - 50 % Low No Sep 25 es informati 2016 4:45 [#/volume on in AM ] in source Unspecifi data ed specimen by Automated count Erythrocy 27 - 31.2 pg Normal No Sep 25 te mean informati 2016 4:45 corpuscul on in AM ar source hemoglobi data n [Entitic mass] Erythrocy 31.8 - g/dl Normal No Sep 25 te mean 35.4 informati 2016 4:45 corpuscul on in AM ar source hemoglobi data n concentra tion [Mass/vol ume] by Automated count Erythrocy 82.2 - fl Normal No Sep 25 te mean 97.8 informati 2016 4:45 corpuscul on in AM ar volume source [Entitic data volume] by Automated count Monocytes 0.1 - 1.0 K/mm3 Normal No Sep 25 informati 2016 4:45 [#/volume on in AM ] in source Blood by data Automated count Monocytes 1.7 - 9.3 % Normal No Sep 25 /100 informati 2017 4:45 leukocyte on in AM s in source Blood by data Automated count Platelet 7.4 - fl Low No Sep 25 mean 10.4 informati 2017 4:45 volume on in AM [Entitic source volume] data in Blood by Automated count Platelets 142 - 424 K/mm3 High No Sep 25 informati 2017 4:45 [#/volume on in AM ] in source Blood data Erythrocy 4.6 - 6.2 M/mm3 Low No Sep 25 landon informati 2016 4:45 [#/volume on in AM ] in source Amniotic data fluid Erythrocy 11.5 - % Normal No Sep 25 te 17.5 informati 2016 4:45 distribut on in AM ion width source [Entitic data volume] by Automated count Leukocyte 4.8 - K/MM3 High No Sep 25 s 10.8 informati 2016 4:45 [#/volume on in AM ] in source Blood data Differential panel, method unspecified - Observa Value Referen Units Interpr Notes Date tion ce etation Range Neutrophi 0 - 8 % High No Sep 25 ls.band informati 2017 4:45 form/100 on in AM leukocyte source s in data Blood by Automated count Hypochr 2+ No No No No Sep 25 omia informa informa informa informa 2016 [Presen tion in tion in tion in tion in 4:45 AM ce] in source source source source Blood data data data data LYMPH 9 10 - 50 % Low No Sep 25 informa 2017 tion in 4:45 AM source data Monocytes 2 - 9 % Low No Sep 25 /100 informati 2016 4:45 leukocyte on in AM s in source Blood by data Automated count Platele SLIGHT No No No No Sep 25 ts INCREAS informa informa informa informa 2017 [Presen E tion in tion in tion in tion in 4:45 AM ce] in source source source source Blood data data data data by Light microsc opy Polychr 1+ No No No No Sep 25 omasia informa informa informa informa 2017 [Presen tion in tion in tion in tion in 4:45 AM ce] in source source source source Blood data data data data by Light microsc opy Neutrophi 42 - 76 % High No Sep 25 ls informati 2016 4:45 [#/volume on in AM ] in source Blood by data Automated count Rouleau 1+ No No No No Sep 25 x informa informa informa informa 2016 [Presen tion in tion in tion in tion in 4:45 AM ce] in source source source source Blood data data data data by Light microsc opy Cells No #CELLS No No Sep 25 Counted informati informati informati 2016 4:45 Total [#] on in on in on in AM in Blood source source source data data data Basic metabolic panel in Blood Observa Value Referen Units Interpr Notes Date tion ce etation Range Urea 7 - 18 mg/dL Normal No Sep 25 nitrogen informati 2017 4:45 [Mass/vol on in AM ume] in source Serum or data Plasma Calcium 8.5 - mg/dL Low No Sep 25 [Mass/vol 10.1 informati 2017 4:45 ume] in on in AM Serum or source Plasma data Chloride 98 - 107 mmoL/L Normal No Sep 25 [Moles/vo informati 2017 4:45 lume] in on in AM Serum or source Plasma data Carbon 21.0 - mmoL/L Normal No Sep 25 dioxide, 32.0 informati 2017 4:45 total on in AM [Moles/vo source lume] in data Serum or Plasma Creatinin 0.70 - mg/dL Normal No Sep 25 e 1.30 informati 2017 4:45 [Mass/vol on in AM ume] in source Serum or data Plasma Creatinin 50 - 200 ML/MIN Normal No Sep 25 e renal informati 2017 4:45 clearance on in AM source predicted data by Cockcroft -Gault formula Estimated >60 ML/MIN No REFERENCE Sep 25 informati RANGE: 2017 4:45 glomerula on in >60 AM r source ML/MIN/1. filtratio data 73 SQUARE n rate METERSIf (GF this patient is -A merican, then multiply theresult by 1.210. Glucose 74 - 106 mg/dL High No Sep 25 [Mass/vol informati 2017 4:45 ume] in on in AM Serum or source Plasma data Potassium 3.5 - 5.1 mmoL/L Normal No Sep 25 informati 2017 4:45 [Moles/vo on in AM lume] in source Serum or data Plasma Sodium 136 - 145 mmoL/L Low No Sep 25 [Moles/vo informati 2017 4:45 lume] in on in AM Serum or source Plasma data CBC W Auto Differential panel in Blood Observa Value Referen Units Interpr Notes Date tion ce etation Range Basophils 0 - 0.2 K/MM3 Normal No Sep 23 informati 2016 5:35 [#/volume on in AM ] in source Blood by data Automated count Basophils 0.1 - 2.0 % Normal No Sep 23 /100 informati 2016 5:35 leukocyte on in AM s in source Blood by data Automated count Eosinophi 0.0 - 0.4 K/mm3 High No Sep 23 ls informati 2016 5:35 [#/volume on in AM ] in source Blood by data Automated count Eosinophi 0.1 - % Normal No Sep 23 ls/100 12.0 informati 2016 5:35 leukocyte on in AM s in source Blood by data Automated count Granulocy 1.3 - 8.0 K/mm3 High No Sep 23 [place] informati 2016 5:35 [#/volume on in AM ] in source Blood by data Automated count Granulocy 37.0 - % Normal No Sep 23 landon/100 80.0 informati 2016 5:35 leukocyte on in AM s in source Blood by data Automated count Hematocri 42.0 - % Low No Sep 23 t [Volume 52.0 informati 2017 5:35 on in AM Fraction] source of Blood data Hemoglobi 14.1 - g/dL Low No Sep 23 n 18.0 informati 2016 5:35 [Mass/vol on in AM ume] in source Blood data Lymphocyt 0.7 - 4.5 K/mm3 Normal No Sep 23 es informati 2017 5:35 [#/volume on in AM ] in source Unspecifi data ed specimen by Automated count Lymphocyt 10 - 50 % Low No Sep 23 es informati 2016 5:35 [#/volume on in AM ] in source Unspecifi data ed specimen by Automated count Erythrocy 27 - 31.2 pg Normal No Sep 23 te mean informati 2017 5:35 corpuscul on in AM ar source hemoglobi data n [Entitic mass] Erythrocy 31.8 - g/dl Normal No Sep 23 te mean 35.4 informati 2016 5:35 corpuscul on in AM ar source hemoglobi data n concentra tion [Mass/vol ume] by Automated count Erythrocy 82.2 - fl Normal No Sep 23 te mean 97.8 informati 2016 5:35 corpuscul on in AM ar volume source [Entitic data volume] by Automated count Monocytes 0.1 - 1.0 K/mm3 Normal No Sep 23 informati 2016 5:35 [#/volume on in AM ] in source Blood by data Automated count Monocytes 1.7 - 9.3 % Normal No Sep 23 /100 informati 2017 5:35 leukocyte on in AM s in source Blood by data Automated count Platelet 7.4 - fl Normal No Sep 23 mean 10.4 informati 2016 5:35 volume on in AM [Entitic source volume] data in Blood by Automated count Platelets 142 - 424 K/mm3 Normal No Sep 23 informati 2016 5:35 [#/volume on in AM ] in source Blood data Erythrocy 4.6 - 6.2 M/mm3 Low No Sep 23 [place] informati 2016 5:35 [#/volume on in AM ] in source Amniotic data fluid Erythrocy 11.5 - % Normal No Sep 23 te 17.5 informati 2016 5:35 distribut on in AM ion width source [Entitic data volume] by Automated count Leukocyte 4.8 - K/MM3 High No Sep 23 s 10.8 informati 2016 5:35 [#/volume on in AM ] in source Blood data Basic metabolic panel in Blood Observa Value Referen Units Interpr Notes Date tion ce etation Range Urea 7 - 18 mg/dL No No Sep 23 nitrogen informati informati 2017 5:35 [Mass/vol on in on in AM ume] in source source Serum or data data Plasma Calcium 8.5 - mg/dL Low No Sep 23 [Mass/vol 10.1 informati 2017 5:35 ume] in on in AM Serum or source Plasma data Chloride 98 - 107 mmoL/L Normal No Sep 23 [Moles/vo informati 2017 5:35 lume] in on in AM Serum or source Plasma data Carbon 21.0 - mmoL/L Normal No Sep 23 dioxide, 32.0 informati 2016 5:35 total on in AM [Moles/vo source lume] in data Serum or Plasma Creatinin 0.70 - mg/dL Normal No Sep 23 e 1.30 informati 2017 5:35 [Mass/vol on in AM ume] in source Serum or data Plasma Creatinin 50 - 200 ML/MIN Normal No Sep 23 e renal informati 2016 5:35 clearance on in AM source predicted data by Cockcroft -Gault formula Estimated >60 ML/MIN No REFERENCE Sep 23 informati RANGE: 2017 5:35 glomerula on in >60 AM r source ML/MIN/1. filtratio data 73 SQUARE n rate METERSIf (GF this patient is -A merican, then multiply theresult by 1.210. Glucose 74 - 106 mg/dL High No Sep 23 [Mass/vol informati 2017 5:35 ume] in on in AM Serum or source Plasma data Potassium 3.5 - 5.1 mmoL/L Normal No Sep 23 informati 2017 5:35 [Moles/vo on in AM lume] in source Serum or data Plasma Sodium 136 - 145 mmoL/L Low No Sep 23 [Moles/vo informati 2017 5:35 lume] in on in AM Serum or source Plasma data Basic metabolic panel in Blood Observa Value Referen Units Interpr Notes Date tion ce etation Range Urea 7 - 18 mg/dL Normal No Sep 21 nitrogen informati 2017 6:30 [Mass/vol on in AM ume] in source Serum or data Plasma Calcium 8.5 - mg/dL Normal No Sep 21 [Mass/vol 10.1 informati 2017 6:30 ume] in on in AM Serum or source Plasma data Chloride 98 - 107 mmoL/L Normal No Sep 21 [Moles/vo informati 2017 6:30 lume] in on in AM Serum or source Plasma data Carbon 21.0 - mmoL/L Normal No Sep 21 dioxide, 32.0 informati 2017 6:30 total on in AM [Moles/vo source lume] in data Serum or Plasma Creatinin 0.70 - mg/dL Normal No Sep 21 e 1.30 informati 2017 6:30 [Mass/vol on in AM ume] in source Serum or data Plasma Creatinin 50 - 200 ML/MIN Normal No Sep 21 e renal informati 2017 6:30 clearance on in AM source predicted data by Cockcroft -Gault formula Estimated >60 ML/MIN No REFERENCE Sep 21 informati RANGE: 2017 6:30 glomerula on in >60 AM r source ML/MIN/1. filtratio data 73 SQUARE n rate METERSIf (GF this patient is -A merican, then multiply theresult by 1.210. Glucose 74 - 106 mg/dL High No Sep 21 [Mass/vol informati 2017 6:30 ume] in on in AM Serum or source Plasma data Potassium 3.5 - 5.1 mmoL/L Normal No Sep 21 informati 2017 6:30 [Moles/vo on in AM lume] in source Serum or data Plasma Sodium 136 - 145 mmoL/L Low No Sep 21 [Moles/vo informati 2017 6:30 lume] in on in AM Serum or source Plasma data CBC W Auto Differential panel in Blood Observa Value Referen Units Interpr Notes Date tion ce etation Range Basophils 0 - 0.2 K/MM3 Normal No Sep 21 informati 2017 6:30 [#/volume on in AM ] in source Blood by data Automated count Basophils 0.1 - 2.0 % Normal No Sep 21 /100 informati 2017 6:30 leukocyte on in AM s in source Blood by data Automated count Eosinophi 0.0 - 0.4 K/mm3 High No Sep 21 ls informati 2017 6:30 [#/volume on in AM ] in source Blood by data Automated count Eosinophi 0.1 - % Normal No Sep 21 ls/100 12.0 informati 2017 6:30 leukocyte on in AM s in source Blood by data Automated count Granulocy 1.3 - 8.0 K/mm3 High No Sep 21 lnadon informati 2017 6:30 [#/volume on in AM ] in source Blood by data Automated count Granulocy 37.0 - % Normal No Sep 21 landon/100 80.0 informati 2017 6:30 leukocyte on in AM s in source Blood by data Automated count Hematocri 42.0 - % Low No Sep 21 t [Volume 52.0 informati 2017 6:30 on in AM Fraction] source of Blood data Hemoglobi 14.1 - g/dL Low No Sep 21 n 18.0 informati 2017 6:30 [Mass/vol on in AM ume] in source Blood data Lymphocyt 0.7 - 4.5 K/mm3 Normal No Sep 21 es informati 2017 6:30 [#/volume on in AM ] in source Unspecifi data ed specimen by Automated count Lymphocyt 10 - 50 % Low No Sep 21 es informati 2017 6:30 [#/volume on in AM ] in source Unspecifi data ed specimen by Automated count Erythrocy 27 - 31.2 pg Normal No Sep 21 te mean informati 2016 6:30 corpuscul on in AM ar source hemoglobi data n [Entitic mass] Erythrocy 31.8 - g/dl Normal No Sep 21 te mean 35.4 informati 2017 6:30 corpuscul on in AM ar source hemoglobi data n concentra tion [Mass/vol ume] by Automated count Erythrocy 82.2 - fl Normal No Sep 21 te mean 97.8 informati 2017 6:30 corpuscul on in AM ar volume source [Entitic data volume] by Automated count Monocytes 0.1 - 1.0 K/mm3 Normal No Sep 21 informati 2017 6:30 [#/volume on in AM ] in source Blood by data Automated count Monocytes 1.7 - 9.3 % Normal No Sep 21 /100 informati 2017 6:30 leukocyte on in AM s in source Blood by data Automated count Platelet 7.4 - fl Normal No Sep 21 mean 10.4 informati 2017 6:30 volume on in AM [Entitic source volume] data in Blood by Automated count Platelets 142 - 424 K/mm3 No No Sep 21 informati informati 2017 6:30 [#/volume on in on in AM ] in source source Blood data data Erythrocy 4.6 - 6.2 M/mm3 Low No Sep 21 landon informati 2017 6:30 [#/volume on in AM ] in source Amniotic data fluid Erythrocy 11.5 - % Normal No Sep 21 te 17.5 informati 2017 6:30 distribut on in AM ion width source [Entitic data volume] by Automated count Leukocyte 4.8 - K/MM3 High No Sep 21 s 10.8 informati 2016 6:30 [#/volume on in AM ] in source Blood data CBC W Auto Differential panel in Blood Observa Value Referen Units Interpr Notes Date tion ce etation Range Basophils 0 - 0.2 K/MM3 Normal No Sep 19 informati 2017 6:15 [#/volume on in AM ] in source Blood by data Automated count Basophils 0.1 - 2.0 % Normal No Sep 19 /100 informati 2017 6:15 leukocyte on in AM s in source Blood by data Automated count Eosinophi 0.0 - 0.4 K/mm3 High No Sep 19 ls informati 2016 6:15 [#/volume on in AM ] in source Blood by data Automated count Eosinophi 0.1 - % Normal No Sep 19 ls/100 12.0 informati 2017 6:15 leukocyte on in AM s in source Blood by data Automated count Granulocy 1.3 - 8.0 K/mm3 High No Sep 19 landon informati 2017 6:15 [#/volume on in AM ] in source Blood by data Automated count Granulocy 37.0 - % High No Sep 19 landon/100 80.0 informati 2017 6:15 leukocyte on in AM s in source Blood by data Automated count Hematocri 42.0 - % Low No Sep 19 t [Volume 52.0 informati 2017 6:15 on in AM Fraction] source of Blood data Hemoglobi 14.1 - g/dL Low No Sep 19 n 18.0 informati 2017 6:15 [Mass/vol on in AM ume] in source Blood data Lymphocyt 0.7 - 4.5 K/mm3 Normal No Sep 19 es informati 2017 6:15 [#/volume on in AM ] in source Unspecifi data ed specimen by Automated count Lymphocyt 10 - 50 % Low No Sep 19 es informati 2017 6:15 [#/volume on in AM ] in source Unspecifi data ed specimen by Automated count Erythrocy 27 - 31.2 pg Normal No Sep 19 te mean informati 2017 6:15 corpuscul on in AM ar source hemoglobi data n [Entitic mass] Erythrocy 31.8 - g/dl Normal No Sep 19 te mean 35.4 informati 2017 6:15 corpuscul on in AM ar source hemoglobi data n concentra tion [Mass/vol ume] by Automated count Erythrocy 82.2 - fl Normal No Sep 19 te mean 97.8 informati 2017 6:15 corpuscul on in AM ar volume source [Entitic data volume] by Automated count Monocytes 0.1 - 1.0 K/mm3 Normal No Sep 19 informati 2017 6:15 [#/volume on in AM ] in source Blood by data Automated count Monocytes 1.7 - 9.3 % Normal No Sep 19 /100 informati 2017 6:15 leukocyte on in AM s in source Blood by data Automated count Platelet 7.4 - fl Normal No Sep 19 mean 10.4 informati 2016 6:15 volume on in AM [Entitic source volume] data in Blood by Automated count Platelets 142 - 424 K/mm3 Normal No Sep 19 informati 2016 6:15 [#/volume on in AM ] in source Blood data Erythrocy 4.6 - 6.2 M/mm3 Low No Sep 19 landon informati 2017 6:15 [#/volume on in AM ] in source Amniotic data fluid Erythrocy 11.5 - % Normal No Sep 19 te 17.5 informati 2017 6:15 distribut on in AM ion width source [Entitic data volume] by Automated count Leukocyte 4.8 - K/MM3 High No Sep 19 s 10.8 informati 2017 6:15 [#/volume on in AM ] in source Blood data Basic metabolic panel in Blood Observa Value Referen Units Interpr Notes Date tion ce etation Range Urea 7 - 18 mg/dL No No Sep 19 nitrogen informati informati 2017 6:15 [Mass/vol on in on in AM ume] in source source Serum or data data Plasma Calcium 8.5 - mg/dL Low No Sep 19 [Mass/vol 10.1 informati 2017 6:15 ume] in on in AM Serum or source Plasma data Chloride 98 - 107 mmoL/L Normal No Sep 19 [Moles/vo informati 2017 6:15 lume] in on in AM Serum or source Plasma data Carbon 21.0 - mmoL/L Normal No Sep 19 dioxide, 32.0 informati 2017 6:15 total on in AM [Moles/vo source lume] in data Serum or Plasma Creatinin 0.70 - mg/dL Normal No Sep 19 e 1.30 informati 2017 6:15 [Mass/vol on in AM ume] in source Serum or data Plasma Creatinin 50 - 200 ML/MIN Normal No Sep 19 e renal informati 2017 6:15 clearance on in AM source predicted data by Cockcroft -Gault formula Estimated >60 ML/MIN No REFERENCE Sep 19 informati RANGE: 2017 6:15 glomerula on in >60 AM r source ML/MIN/1. filtratio data 73 SQUARE n rate METERSIf (GF this patient is -A merican, then multiply theresult by 1.210. Glucose 74 - 106 mg/dL High No Sep 19 [Mass/vol informati 2017 6:15 ume] in on in AM Serum or source Plasma data Potassium 3.5 - 5.1 mmoL/L Normal No Sep 19 informati 2017 6:15 [Moles/vo on in AM lume] in source Serum or data Plasma Sodium 136 - 145 mmoL/L Normal No Sep 19 [Moles/vo informati 2017 6:15 lume] in on in AM Serum or source Plasma data Mycoplasma pneumoniae IgM Ab [Presence] in Serum by Immunoassay Observa Value Referen Units Interpr Notes Date tion ce etation Range Mycopla NON-CARLO NONREAC No No No Sep 18 sma CTIVE TIVE informa informa informa 2017 pneumon tion in tion in tion in 3:30 PM iae IgM source source source Ab data data data [Presen ce] in Serum by Immunoa ssay CBC W Auto Differential panel in Blood Observa Value Referen Units Interpr Notes Date tion ce etation Range Basophils 0 - 0.2 K/MM3 Normal No Sep 18 informati 2017 3:30 [#/volume on in PM ] in source Blood by data Automated count Basophils 0.1 - 2.0 % Normal No Sep 18 /100 informati 2016 3:30 leukocyte on in PM s in source Blood by data Automated count Eosinophi 0.0 - 0.4 K/mm3 Normal No Sep 18 ls informati 2016 3:30 [#/volume on in PM ] in source Blood by data Automated count Eosinophi 0.1 - % Normal No Sep 18 ls/100 12.0 informati 2016 3:30 leukocyte on in PM s in source Blood by data Automated count Granulocy 1.3 - 8.0 K/mm3 High No Sep 18 [place] informati 2016 3:30 [#/volume on in PM ] in source Blood by data Automated count Granulocy 37.0 - % High No Sep 18 landon/100 80.0 informati 2016 3:30 leukocyte on in PM s in source Blood by data Automated count Hematocri 42.0 - % Low No Sep 18 t [Volume 52.0 informati 2017 3:30 on in PM Fraction] source of Blood data Hemoglobi 14.1 - g/dL Low No Sep 18 n 18.0 informati 2016 3:30 [Mass/vol on in PM ume] in source Blood data Lymphocyt 0.7 - 4.5 K/mm3 Normal No Sep 18 es informati 2016 3:30 [#/volume on in PM ] in source Unspecifi data ed specimen by Automated count Lymphocyt 10 - 50 % Low No Sep 18 es informati 2016 3:30 [#/volume on in PM ] in source Unspecifi data ed specimen by Automated count Erythrocy 27 - 31.2 pg Normal No Sep 18 te mean informati 2016 3:30 corpuscul on in PM ar source hemoglobi data n [Entitic mass] Erythrocy 31.8 - g/dl Normal No Sep 18 te mean 35.4 informati 2016 3:30 corpuscul on in PM ar source hemoglobi data n concentra tion [Mass/vol ume] by Automated count Erythrocy 82.2 - fl Normal No Sep 18 te mean 97.8 informati 2016 3:30 corpuscul on in PM ar volume source [Entitic data volume] by Automated count Monocytes 0.1 - 1.0 K/mm3 High No Sep 18 informati 2016 3:30 [#/volume on in PM ] in source Blood by data Automated count Monocytes 1.7 - 9.3 % Normal No Sep 18 /100 informati 2016 3:30 leukocyte on in PM s in source Blood by data Automated count Platelet 7.4 - fl Low No Sep 18 mean 10.4 informati 2016 3:30 volume on in PM [Entitic source volume] data in Blood by Automated count Platelets 142 - 424 K/mm3 No No Sep 18 informati informati 2016 3:30 [#/volume on in on in PM ] in source source Blood data data Erythrocy 4.6 - 6.2 M/mm3 Low No Sep 18 landon informati 2016 3:30 [#/volume on in PM ] in source Amniotic data fluid Erythrocy 11.5 - % Normal No Sep 18 te 17.5 informati 2016 3:30 distribut on in PM ion width source [Entitic data volume] by Automated count Leukocyte 4.8 - K/MM3 High No Sep 18 s 10.8 informati 2016 3:30 [#/volume on in PM ] in source Blood data Differential panel, method unspecified - Observa Value Referen Units Interpr Notes Date tion ce etation Range LYMPH 3 10 - 50 % Low No Sep 18 inform2016 tion in 3:30 PM source data Monocytes 2 - 9 % Normal No Sep 18 /100 informati 2016 3:30 leukocyte on in PM s in source Blood by data Automated count Platele NORMAL No No No No Sep 18 ts informa informa informa inform2016 [Presen tion in tion in tion in tion in 3:30 PM ce] in source source source source Blood data data data data by Light microsc opy Neutrophi 42 - 76 % High No Sep 18 ls informati 2017 3:30 [#/volume on in PM ] in source Blood by data Automated count Cells No #CELLS No No Sep 18 Counted informati informati informati 2017 3:30 Total [#] on in on in on in PM in Blood source source source data data data Basic metabolic panel in Blood Observa Value Referen Units Interpr Notes Date tion ce etation Range Urea 7 - 18 mg/dL High No Sep 18 nitrogen informati 2017 3:30 [Mass/vol on in PM ume] in source Serum or data Plasma Calcium 8.5 - mg/dL Normal No Sep 18 [Mass/vol 10.1 informati 2017 3:30 ume] in on in PM Serum or source Plasma data Chloride 98 - 107 mmoL/L Normal No Sep 18 [Moles/vo informati 2017 3:30 lume] in on in PM Serum or source Plasma data Carbon 21.0 - mmoL/L Normal No Sep 18 dioxide, 32.0 informati 2017 3:30 total on in PM [Moles/vo source lume] in data Serum or Plasma Creatinin 0.70 - mg/dL High No Sep 18 e 1.30 informati 2017 3:30 [Mass/vol on in PM ume] in source Serum or data Plasma Creatinin 50 - 200 ML/MIN Normal No Sep 18 e renal informati 2017 3:30 clearance on in PM source predicted data by Cockcroft -Gault formula Estimated >60 ML/MIN No REFERENCE Sep 18 informati RANGE: 2017 3:30 glomerula on in >60 PM r source ML/MIN/1. filtratio data 73 SQUARE n rate METERSIf (GF this patient is -A merican, then multiply theresult by 1.210. Glucose 74 - 106 mg/dL High No Sep 18 [Mass/vol informati 2017 3:30 ume] in on in PM Serum or source Plasma data Potassium 3.5 - 5.1 mmoL/L Low No Sep 18 informati 2017 3:30 [Moles/vo on in PM lume] in source Serum or data Plasma Sodium 136 - 145 mmoL/L Normal No Sep 18 [Moles/vo informati 2017 3:30 lume] in on in PM Serum or source Plasma data
--- OUTSIDE RECORDS SUMMARY | 2017-02-05 03:49 | External Medical Summary Rpt ---
[...] - 8.0 K/mm3 High No Sep 21 landon informati 2017 6:30 [...]
== END 2017-01-22 10:02 | disposition home or self-care (01) | DRG 195 ==
LOC: 2ND 13:45
PROVIDERS: Family Medicine
DX: J18.9 Pneumonia, unspecified organism (principal); I10 Essential (primary) hypertension; J15.29 Pneumonia due to other staphylococcus; E86.1 Hypovolemia; E86.0 Dehydration; D64.9 Anemia, unspecified
CPT/HCPCS: J0456; J1335; J2405

== ENCOUNTER → 2017-01-31 | Outpatient (CLI) | payer OTHER ==
[~2017-01-31] MED LIST: AMLODIPINE10 MG PO; CLINDAMYCIN HC300 MG PO; COQ1050 MG PO; FISH OIL1000 MG PO; FLEXERIL10 MG PO; HCTZ/LISINOPRIL1 TA3 PO; LISINOPRIL HCTZ1 TAB PO; LORADAMED10 MG PO; MAG-OX 400MG T400 MG PO; MELOXICAM15 MG PO; METOPROLOL SUC100 M1 PO; PROMETHAZINE D240 ML PO
--- NOTE | 2017-01-31 12:20 | RADIOLOGY REPORT PS360 ---
CHEST(2 VIEWS-NOT PORTABLE) COMPARISON: PA and lateral chest 01/20/2017 and 01/15/2017 HISTORY: Follow-up pneumonia, Staphylococcus aureus TECHNIQUE: PA and lateral chest FINDINGS: There continues to be slow improvement in the diffuse ill-defined pneumonic infiltrate in the right perihilar region and right lower lobe. A moderate-sized reactive pleural effusion is again noted at the right base right costo phrenic angle along the lower lateral chest wall. This shows slight decrease in size as well. The left lung pacheco well expanded and remains clear. Cardiac size is normal. IMPRESSION: Slow but continued improvement but with moderate size right pleural effusion remaining most of which is subpulmonic in location
== END ==
LOC: RAD 10:01
DX: J15.211 Pneumonia due to Methicillin susceptible Staphylococcus aureus (principal)

== ENCOUNTER → 2017-02-11 | Outpatient (CLI) | payer OTHER ==
--- NOTE | 2017-02-11 14:15 | RADIOLOGY REPORT PS360 ---
CT CHEST W/ CONTRAST INDICATION: Chronic pleural effusion with infiltrate on the right PLEURAL EFFUSION ORDERING PHYSICIAN: Melquiades Ham MD PATIENT AGE: 52 years COMPARISON: Radiograph of 01/20/2017 TECHNIQUE: Axial images are obtained with contrast. Sagittal and coronal reformatted images are reviewed as well. FINDINGS: There is a small precarinal lymph node at 2 x 1.3 cm. Other smaller nodes are present in the subcarinal area and donnie. A 2.4 x 1.7 cm subcarinal lymph node is present. Consolidation is present in the right lower lobe with air bronchograms. There is a small to medium sized complex right pleural effusion with some mild thickening and enhancement along the peripheral aspect of the effusion. No gas evident within the pleural space. No obvious abscess. There are mild atelectatic changes in the right lower lobe laterally with a focal parenchymal opacity at this area measuring 1.8 x 1 cm. Minimal atelectatic changes are present in the left lung base laterally. The left lung is otherwise clear. Upper abdominal images show left hydronephrosis versus large parapelvic renal cyst. Left kidney is only partially imaged. No acute bony anomalies. IMPRESSION: 1. Small to medium sized complex right pleural effusion with right posterior basilar consolidation/pneumonia and/or volume loss and mild atelectatic changes in the right lung base anteriorly. 2. Parenchymal opacity right lung base laterally probably related to atelectatic change. 3. Mild mediastinal adenopathy.
== END ==
LOC: RAD 13:28
DX: J90 Pleural effusion, not elsewhere classified (principal)
CPT/HCPCS: Q9967

== ENCOUNTER → 2017-03-28 | Outpatient (CLI) | payer OTHER ==
--- NOTE | 2017-03-28 15:37 | RADIOLOGY REPORT PS360 ---
CHEST(2 VIEWS-NOT PORTABLE) HISTORY: Follow-up pneumonia H/O PNEUMONIA ORDERING PHYSICIAN: Melquiades Ham MD PATIENT AGE: 52 years COMPARISON: 02/24/2017 FINDINGS: The cardiomediastinal silhouette and pulmonary vascularity are within normal limits. Right pleural effusion persists with right basilar atelectasis/volume loss and elevated right hemidiaphragm. There is airspace disease now present in the right middle lobe consistent with pneumonia. There is a small left pleural effusion. No acute bony anomalies. IMPRESSION: 1. Persistent right-sided effusion with right lower lobe atelectasis. 2. Right middle lobe infiltrate. 3. No change small left effusion
== END ==
LOC: RAD 14:55
DX: Z87.01 Personal history of pneumonia (recurrent) (principal)